=== PATIENT | female | born 1960 | race American Indian/Alaskan Native ===

== ENCOUNTER 2016-12-26 16:22 | Emergency (ER) | payer OTHER, BC ==
[2016-12-26] MEDS ORDERED: FIORICET PO ONE (20:58)
[2016-12-26] MEDS ORDERED: FLEXERIL PO ONE (20:58)
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
[2016-12-27 00:26] VITALS: BP 143/89
== END 2016-12-27 01:21 | disposition home or self-care (01) ==
LOC: ED 16:22
DX: M79.1 Myalgia (principal); G43.009 Migraine without aura, not intractable, without status migrainosus; I10 Essential (primary) hypertension; V49.40XA Driver injured in collision with unspecified motor vehicles in traffic accident, initial encounter; Y93.89 Activity, other specified; Y99.9 Unspecified external cause status; Y92.410 Unspecified street and highway as the place of occurrence of the external cause
CPT/HCPCS: 70450